=== PATIENT | female | born 1995 | race Caucasian/White ===

== ENCOUNTER 2018-12-04 20:24 | Inpatient (IN) ==
[2018-12-04 20:51] LABS: Bilirubin,Urine Negative (Negative); Blood,Urine Negative (Negative); Clarity,Urine Cloudy (Clear); Color,Urine Yellow (Yellow); Glucose,Urine (UA) Normal (Normal); Ketones,Urine Negative (Negative); Leukocyte Esterase,Urine Trace (Negative); Nitrite,Urine Negative (Negative); PH,Urine 7.5 pH Units (5.0-8.0); Protein,Urine 30 mg/dL (Neg-Trace); Specific Gravity,Urine 1.021 (1.010-1.025); Urobilinogen,Urine Normal (Normal)
[2018-12-04 20:55] LABS: Bacteria,Urine Moderate per hpf (None-Few); Hyaline Casts,Urine None Seen per lpf (None-Few); Squamous Epithelial Cell,Urine Many per lpf (None-Few)
--- NOTE | 2018-12-04 21:11 | Emergency Department Note ---
Disposition Clinical Impression: Suicidal ideation, Medical clearance for psychiatric admission Disposition: Admitted As Inpatient Condition: Undetermined Referrals: NONE,PCP [Primary Care Provider] - Forms: ED Satisfaction Letter General Adult HPI - General Chief complaint: ED Psychiatric Symptoms Stated complaint: SI Time Seen by Provider: 12/04/18 20:33 Source: patient Limitations: no limitations Nursing Notes Reviewed: Yes Vital Signs Reviewed: Yes - History of Present Illness Pain Scale: 0 - Related Data Home Medications Medication Instructions Recorded Confirmed Etonogestrel [Nexplanon] 68 mg SQ ONCE 02/23/17 02/23/17 Previous Rx's Medication Instructions Recorded Azithromycin [Azithromycin 6-Tab 250 mg PO PER PKG DI #6 tab 11/03/18 Pack] Benzonatate [Tessalon] 200 mg PO TID PRN #30 capsule 11/03/18 GuaiFENesin ER [Mucinex] 1,200 mg PO BID #20 tbbp.12hr 11/03/18 Allergies Allergy/AdvReac Type Severity Reaction Status Date / Time Amoxicillin Allergy Rash Verified 11/03/18 16:57 Past Medical History - Past Medical History Medical history: Reports: no medical history Surgical history: Reports: appendectomy Psychiatric history: Reports: anxiety, depression - Social History Smoking Status: Current some day smoker Smokeless Tobacco Status: No Alcohol use: Reports: rarely Drug use: Reports: none Physical Exam - General Limitations: no limitations General appearance: alert, in no apparent distress Course Vital Signs Temperature 98.3 F 12/04/18 20:27 Pulse Rate 92 12/04/18 20:27 Respiratory Rate 16 12/04/18 20:27 Blood Pressure 128/82 12/04/18 20:27 O2 Sat by Pulse Oximetry 99 12/04/18 20:27 Temperature 98.3 F 12/04/18 20:27 Pulse Rate 92 12/04/18 20:27 Respiratory Rate 16 12/04/18 20:27 Blood Pressure 128/82 12/04/18 20:27 O2 Sat by Pulse Oximetry 99 12/04/18 20:27 Oxygen Delivery Oxygen Delivery Room Air Medical Decision Making - [facility] Narrative Medical decision making narrative: 2240 hrs.: 1A has evaluated her and agree she to admission. She is in agreement with plan. [address] Impression suicidal ideations and depression. - Lab Data Lab Results 12/04/18 12/04/18 12/04/18 Range/Units 20:38 20:38 20:38 TSH 2.739 (0.340-5.600) mcIU/mL Urine Color Yellow (Yellow) Urine Clarity Cloudy A (Clear) Urine pH 7.5 (5.0-8.0) pH Units Ur Specific [place] 1.021 (1.010-1.025) Urine Protein 30 H (Neg-Trace) mg/dL Urine Glucose (UA) Normal (Normal) mg/dL Urine Ketones Negative (Negative) mg/dL Urine Blood Negative (Negative) Urine Nitrite Negative (Negative) Urine Bilirubin Negative (Negative) Urine Urobilinogen Normal (Normal) mg/dL Ur Leukocyte Esterase Trace H (Negative) Urine Microscopic RBC 5-15 H (0-3) per hpf Urine Microscopic WBC 5-15 H (0-3) per hpf Ur Squamous Epith Cells Many H (None-Few) per lpf Urine Bacteria Moderate H (None-Few) per hpf Hyaline Casts None Seen (None-Few) per lpf Urine Test (Negative) Salicylates < 2.5 L (15.0-30.0) mg/dL Urine Opiates Screen Negative (Gclilh=526) ng/mL Acetaminophen < 10 L (10-20) mcg/mL Ur Barbiturates Screen Negative (Dquvmx=019) ng/mL Ur Phencyclidine Scrn Negative (Cutoff=25) ng/mL Ur Amphetamines Screen Negative (Hnjxzs=0264) ng/mL U Benzodiazepines Scrn Negative (Gnjigf=894) ng/mL Urine Cocaine Screen Negative (Cutoff= 300) ng/mL U Marijuana (THC) Screen Negative (Cutoff = 50) ng/mL Ur Drug Screen Interp See Below Ethyl Alcohol < 10 (Less than 10) mg/dL 12/04/18 Range/Units 20:38 TSH (0.340-5.600) mcIU/mL Urine Color (Yellow) Urine Clarity (Clear) Urine pH (5.0-8.0) pH Units Ur Specific [place] (1.010-1.025) Urine Protein (Neg-Trace) mg/dL Urine Glucose (UA) (Normal) mg/dL Urine Ketones (Negative) mg/dL Urine Blood (Negative) Urine Nitrite (Negative) Urine Bilirubin (Negative) Urine Urobilinogen (Normal) mg/dL Ur Leukocyte Esterase (Negative) Urine Microscopic RBC (0-3) per hpf Urine Microscopic WBC (0-3) per hpf Ur Squamous Epith Cells (None-Few) per lpf Urine Bacteria (None-Few) per hpf Hyaline Casts (None-Few) per lpf Urine Test Negative (Negative) Salicylates (15.0-30.0) mg/dL Urine Opiates Screen (Ubmeth=476) ng/mL Acetaminophen (10-20) mcg/mL Ur Barbiturates Screen (Mbtbbb=990) ng/mL Ur Phencyclidine Scrn (Cutoff=25) ng/mL Ur Amphetamines Screen (Zttoob=7948) ng/mL U Benzodiazepines Scrn (Vwkvfx=039) ng/mL Urine Cocaine Screen (Cutoff= 300) ng/mL U Marijuana (THC) Screen (Cutoff = 50) ng/mL Ur Drug Screen Interp Ethyl Alcohol (Less than 10) mg/dL Attestation Statement - Attestation Attestation: I examined this patient and my medical decision-making was reviewed with the Resident Physician. I agree with the documented findings, disposition and treatment plan as described except to the extent set forth below. Patient seen and evaluated by Dr. Darnell and myself, I agree with his evaluation and managem ent plan, I supervised the care the patient's stay. Patient comes in she has been depressed for some time mom states she has had anxiety recent break up with fiance. Mom states that she is not certain why she has been so depressed over that she says she is crying multiple times is never sure what is going on. However then she tells us that she is suicidal with a possible plan of there are guns in the household also. She has not any overdose history in the past she has been on Lexapro they did increase the dose of that. She is trying to get in the counseling center but cannot get in until December. Leigh do lab work on her. A 72 hold and will be in place and then 1A evaluation.
--- NOTE | 2018-12-04 21:14 | Emergency Department Note ---
Disposition Clinical Impression: Suicidal ideation, Medical clearance for psychiatric admission Disposition: Admitted As Inpatient Condition: Undetermined Referrals: NONE,PCP [Primary Care Provider] - Forms: ED Satisfaction Letter Time of Disposition: 22:38 Psych HPI - General Chief Complaint: ED Psychiatric Symptoms Stated Complaint: SI Time Seen by Provider: 12/04/18 20:33 Source: patient Mode of arrival: ambulatory Limitations: no limitations Nursing Notes Reviewed: Yes Vital Signs Reviewed: Yes - History of Present Illness HPI Narrative: 23-year-old female with history of anxiety arrives to emergency department with suicidal ideation. The patient states that she recently had her boyfriend a couple months ago and she states that his "spiraling downhill since then. The patient states that she feels hopeless. The patient has suicidal ideations with a plan to shoot herself agrees he will park or hang herself with a rat[place]. The family does have access to firearms. The patient denies any other complaints at this time. She is very tearful examination the room. - Related Data Home Medications Medication Instructions Recorded Confirmed Etonogestrel [Nexplanon] 68 mg SQ ONCE 02/23/17 02/23/17 Previous Rx's Medication Instructions Recorded Azithromycin [Azithromycin 6-Tab 250 mg PO PER PKG DI #6 tab 11/03/18 Pack] Benzonatate [Tessalon] 200 mg PO TID PRN #30 capsule 11/03/18 GuaiFENesin ER [Mucinex] 1,200 mg PO BID #20 tbbp.12hr 11/03/18 Allergies Allergy/AdvReac Type Severity Reaction Status Date / Time Amoxicillin Allergy Rash Verified 11/03/18 16:57 All systems ED: reviewed and negative except as stated. Constitutional: Denies: fever, chills, weakness ENT ED: Denies: dysphagia Cardiovascular: Denies: chest pain Respiratory: Denies: dyspnea Gastrointestinal: Denies: abdominal pain Genitourinary: Denies: urgency, dysuria Musculoskeletal: Denies: back pain Integumentary: Denies: rash Neurological: Denies: headache Psychiatric: Reports: anxiety, depression, suicidal thoughts. Denies: homicidal thoughts, auditory hallucinations, visual hallucinations Past Medical History - Past Medical History Attestation: Yes The following information was validated with the patient. Source: patient, old records reviewed Medical history: Reports: no medical history Surgical history: Reports: appendectomy Psychiatric history: Reports: anxiety, depression - Social History Smoking Status: Current some day smoker Smokeless Tobacco Status: No Alcohol use: Reports: rarely Drug use: Reports: none Physical Exam - General Limitations: no limitations General appearance: alert, in no apparent distress, anxious - Head Head exam: atraumatic, normocephalic, normal inspection - Eye Eye exam: Present: normal appearance, PERRL, EOMI - ENT ENT exam: normal exam, normal oropharynx, mucous membranes moist - Neck Neck exam: Present: normal inspection, full ROM, trachea midline - Chest Chest inspection: Present: normal inspection, symmetric chest wall rise - Respiratory Respiratory exam: Absent: respiratory distress - Cardiovascular Cardiovascular exam: Present: regular rate - Extremities Exam Extremities exam: Present: normal inspection, full ROM. Absent: tenderness, pedal edema - Neurological Exam Neurological exam: Present: alert, oriented X3, CN II-XII intact - Psychiatric Psychiatric exam: Present: depressed, suicidal ideation. Absent: homicidal ideation - Skin Skin exam: Present: warm, dry, intact, normal color Course - Reevaluation(s) Reevaluation #1: Patient medically cleared. One a will see patient. Time: 21:32 Vital Signs Temperature 98.3 F 12/04/18 20:27 Pulse Rate 92 12/04/18 20:27 Respiratory Rate 16 12/04/18 20:27 Blood Pressure 128/82 12/04/18 20:27 O2 Sat by Pulse Oximetry 99 12/04/18 20:27 Temperature 98.3 F 12/04/18 20:27 Pulse Rate 92 12/04/18 20:27 Respiratory Rate 16 12/04/18 20:27 Blood Pressure 128/82 12/04/18 20:27 O2 Sat by Pulse Oximetry 99 12/04/18 20:27 Oxygen Delivery Oxygen Delivery Room Air Psych - MDM Narrative Medical decision making narrative: Patient was medically cleared and evaluated by one a day. At that time they feel as though the patient needs to be admitted for observation to psychiatric services. Patient admitted this time. No further recommendations noted. - Lab Data Lab Results 12/04/18 12/04/18 12/04/18 Range/Units 20:38 20:38 20:38 TSH 2.739 (0.340-5.600) mcIU/mL Urine Color Yellow (Yellow) Urine Clarity Cloudy A (Clear) Urine pH 7.5 (5.0-8.0) pH Units Ur Specific [place] 1.021 (1.010-1.025) Urine Protein 30 H (Neg-Trace) mg/dL Urine Glucose (UA) Normal (Normal) mg/dL Urine Ketones Negative (Negative) mg/dL Urine Blood Negative (Negative) Urine Nitrite Negative (Negative) Urine Bilirubin Negative (Negative) Urine Urobilinogen Normal (Normal) mg/dL Ur Leukocyte Esterase Trace H (Negative) Urine Microscopic RBC 5-15 H (0-3) per hpf Urine Microscopic WBC 5-15 H (0-3) per hpf Ur Squamous Epith Cells Many H (None-Few) per lpf Urine Bacteria Moderate H (None-Few) per hpf Hyaline Casts None Seen (None-Few) per lpf Urine Test (Negative) Salicylates < 2.5 L (15.0-30.0) mg/dL Urine Opiates Screen Negative (Gysntk=727) ng/mL Acetaminophen < 10 L (10-20) mcg/mL Ur Barbiturates Screen Negative (Pfawhn=820) ng/mL Ur Phencyclidine Scrn Negative (Cutoff=25) ng/mL Ur Amphetamines Screen Negative (Qojwlr=7113) ng/mL U Benzodiazepines Scrn Negative (Agcebb=109) ng/mL Urine Cocaine Screen Negative (Cutoff= 300) ng/mL U Marijuana (THC) Screen Negative (Cutoff = 50) ng/mL Ur Drug Screen Interp See Below Ethyl Alcohol < 10 (Less than 10) mg/dL 12/04/18 Range/Units 20:38 TSH (0.340-5.600) mcIU/mL Urine Color (Yellow) Urine Clarity (Clear) Urine pH (5.0-8.0) pH Units Ur Specific [place] (1.010-1.025) Urine Protein (Neg-Trace) mg/dL Urine Glucose (UA) (Normal) mg/dL Urine Ketones (Negative) mg/dL Urine Blood (Negative) Urine Nitrite (Negative) Urine Bilirubin (Negative) Urine Urobilinogen (Normal) mg/dL Ur Leukocyte Esterase (Negative) Urine Microscopic RBC (0-3) per hpf Urine Microscopic WBC (0-3) per hpf Ur Squamous Epith Cells (None-Few) per lpf Urine Bacteria (None-Few) per hpf Hyaline Casts (None-Few) per lpf Urine Test Negative (Negative) Salicylates (15.0-30.0) mg/dL Urine Opiates Screen (Bryxtw=027) ng/mL Acetaminophen (10-20) mcg/mL Ur Barbiturates Screen (Erscwy=691) ng/mL Ur Phencyclidine Scrn (Cutoff=25) ng/mL Ur Amphetamines Screen (Zzqiha=3722) ng/mL U Benzodiazepines Scrn (Kihybb=592) ng/mL Urine Cocaine Screen (Cutoff= 300) ng/mL U Marijuana (THC) Screen (Cutoff = 50) ng/mL Ur Drug Screen Interp Ethyl Alcohol (Less than 10) mg/dL Psychiatric Medical Clearance - Medical Clearance Checklist Medical History: No Social History Section defined Current Vitals: Last Vital Signs Temp 98.3 F 12/04/18 20:27 Pulse 92 12/04/18 20:27 Resp 16 12/04/18 20:27 BP 128/82 12/04/18 20:27 Pulse Ox 99 12/04/18 20:27 Psychiatric Lab Panel: Drug Levels and Toxicity 12/04/18 12/04/18 20:38 20:38 Urine Opiates Screen Negative Acetaminophen < 10 L Ur Barbiturates Screen Negative Ur Phencyclidine Scrn Negative Ur Amphetamines Screen Negative U Benzodiazepines Scrn Negative Urine Cocaine Screen Negative U Marijuana (THC) Screen Negative Ethyl Alcohol < 10 Abnormal Labs: Abnormal lab results Urine Clarity Cloudy (Clear) A 12/04/18 20:38 Urine Protein 30 mg/dL (Neg-Trace) H 12/04/18 20:38 Ur Leukocyte Esterase Trace (Negative) H 12/04/18 20:38 Urine Microscopic RBC 5-15 per hpf (0-3) H 12/04/18 20:38 Urine Microscopic WBC 5-15 per hpf (0-3) H 12/04/18 20:38 Ur Squamous Epith Cells Many per lpf (None-Few) H 12/04/18 20:38 Urine Bacteria Moderate per hpf (None-Few) H 12/04/18 20:38 Salicylates < 2.5 mg/dL (15.0-30.0) L 12/04/18 20:38 Acetaminophen < 10 mcg/mL (10-20) L 12/04/18 20:38 Statement of Medical Clearance: I have evaluated the patient, reviewed diagnostic information, and certify that the patient's medical condition is sufficiently stable that transfer to the psychiatric unit does not pose a significant risk of deterioration.
[2018-12-04 21:19] LABS: Acetaminophen < 10 mcg/mL (10-20); Amphetamine Screen,Urine Negative ng/mL (Cutoff=1000); Barbiturate Screen,Urine Negative ng/mL (Cutoff=200); Benzodiazepines Screen,Urine Negative ng/mL (Cutoff=200); Cannabinoid Screen,Urine Negative ng/mL (Cutoff = 50); Cocaine Screen,Urine Negative ng/mL (Cutoff= 300); Ethanol < 10 mg/dL (Less than 10); Opiate Screen,Urine Negative ng/mL (Cutoff=300); Phencyclidine Screen,Urine Negative ng/mL (Cutoff=25); Salicylate < 2.5 mg/dL (15.0-30.0)
[2018-12-04 21:26] LABS: Thyroid Stimulating Hormone 2.739 mcIU/mL (0.340-5.600)
[2018-12-05] MEDS ORDERED: Haloperidol Lactate 5 MG/ML VIAL IM PRN (00:29)
[2018-12-05] MEDS ORDERED: Mag Hydrox/Al Hydrox/Simeth 30 ML UDC PO PRN (00:29)
[2018-12-05] MEDS ORDERED: MOM Conc 10 ML UD.LIQ PO PRN (00:29)
[2018-12-05] MEDS ORDERED: hydrOXYzine pamoate 25 MG CAPSULE PO PRN (00:29)
[2018-12-05] MEDS ORDERED: *HR* LORazepam 1 MG TABLET PO PRN (00:29)
[2018-12-05] MEDS ORDERED: *HR* LORazepam 2 MG/ML VIAL IM PRN (00:29)
[2018-12-05] MEDS: traZODone 50 MG TABLET PO PRN ×2 (01:03→22:15)
[2018-12-05] MEDS: Ibuprofen 400 MG TABLET PO PRN (01:04)
[2018-12-05] MEDS ORDERED: BuPROPion XL (24 HR) 150 MG TABLET PO ONE (10:30)
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
[2018-12-06] MEDS: BuPROPion XL (24 HR) 150 MG TABLET PO SCH (08:26)
--- NOTE | 2018-12-06 09:35 | Psychiatry Progress Note ---
Date of Encounter: 12/06/18 Time of Encounter: 09:31 Subjective Interval history: Client reports tolerating the Wellbutrin. Thinks it might be helping. Reports her mood is "neutral" as opposed to sad. Does not feel happy but notices she does not necessarily feel bad either. SI still present off and on. Attended some groups yesterday. Stressed importance of attending groups again today to learn new coping skills. Client unable to express any coping skills on her own. Does not yet have a plan for what she will do when/if suicidal thoughts return after discharge. Not yet linked with services but getting set up with an outpatient psychiatrist and counselor will help. Wanting to go home which is a positive. Likely discharge tomorrow if things continue to improve. Review of Systems Constitutional: Denies: fever, chills, weakness, weight change Eyes: Denies: eye pain, vision change Ears, Nose, Throat: Denies: ear pain, throat pain, dental pain, hearing loss, congestion Cardiovascular: Denies: chest pain, palpitations, dyspnea on exertion Respiratory: Denies: cough, dyspnea, wheezes Gastrointestinal: Denies: abdominal pain, nausea, vomiting, diarrhea, constipation Musculoskeletal: Denies: joint swelling, joint pain Neurological: Denies: headache, weakness, numbness, memory loss Psychiatric: Reports: depression, anxiety, anhedonia. Denies: suicidal ideation, homicidal ideation, auditory hallucinations, visual hallucinations Results - Vital Signs Vital Signs: Temp Pulse Resp BP Pulse Ox 97.2 F L 70 18 109/76 97 12/06/18 09:00 12/06/18 09:00 12/06/18 09:00 12/06/18 09:00 12/06/18 09:00 Assessment and Plan (1) Major depress dis, severe Current visit: Yes Status: Acute Plan: Continue hospitalization, Close observation, Suicide Precautions per unit protocol, Encourage participation in unit milieu, Group Therapy, Monitor sleep, Monitor appetite Risks, benefits, side effects, alternatives discussed w/pt: Yes Patient agreeable to treatment: Yes (2) Suicidal ideation Current visit: Yes Status: Acute Plan: Continue hospitalization, Close observation, Suicide Precautions per unit protocol, Encourage participation in unit milieu, Group Therapy, Monitor sleep, Monitor appetite Risks, benefits, side effects, alternatives discussed w/pt: Yes Patient agreeable to treatment: Yes Consult Discharge Plan - Plan Referrals: NONE,PCP [Primary Care Provider] - Psychiatry Exam - Constitutional Vitals: Temp Pulse Resp BP Pulse Ox 97.2 F L 70 18 109/76 97 12/06/18 09:00 12/06/18 09:00 12/06/18 09:00 12/06/18 09:00 12/06/18 09:00 General appearance: age & developmentally appropriate, well-groomed, well- nourished - Musculoskeletal Gait: normal Station: relaxed Strength & Tone: normal for patient - Psychiatric Patient Orientation: Yes Person, Yes Time, Yes Place Level of alertness: Alert Behavior: calm, cooperative Psychomotor activity: Normal Eye Contact: Maintains Eye Contact Mood Description: Depressed Affect description: congruent with mood Speech Volume: Normal Speech pattern: normal rate, normal rhythm, normal tone, fluent, spontaneous Language & Vocabulary: consistent with education Thought Process: Linear Thought Content: Yes Suicidal ideation, No Homicidal ideation, No Overt delusions Perceptual Disturbances: No Auditory hallucinations, No Visual hallucinations Attention Span Ability: Capable of Focused Attention Memory Description: Grossly Intact Patient Reliability: Reliable Historian Fund of knowledge: Yes abstraction ability, Yes aware of current events Intelligence Estimate: Average Judgment: Fair Insight: Partial
[2018-12-06] MEDS: Ibuprofen 400 MG TABLET PO PRN ×2 (11:14→20:57)
[2018-12-06] MEDS: traZODone 50 MG TABLET PO PRN (20:57)
[2018-12-07] MEDS: BuPROPion XL (24 HR) 150 MG TABLET PO SCH (08:10)
[2018-12-07 10:01] VITALS: BP 105/64
--- NOTE | 2018-12-07 11:50 | Discharge Summary ---
Date of Encounter: 12/07/18 Time of Encounter: 10:50 Diagnosis - Discharge Diagnosis (1) Major depress dis, severe Priority: Primary Status: Acute (2) Suicidal ideation Status: Resolved Medications - Discharge Medications Prescriptions: BuPROPion XL (24 HR) [Wellbutrin Xl] 150 mg PO DAILY 14 Days #14 tab.er.24h Escitalopram [Lexapro] 10 mg PO DAILY 14 Days #14 tablet Biotin 1 mg PO DAILY 12/05/18 [History] Levonorgestrel [Kyleena] 1 each IY AD 12/05/18 [History] BuPROPion XL (24 HR) [Wellbutrin Xl] 150 mg PO DAILY 14 Days #14 tab.er.24h 12/07/18 [Rx] Escitalopram [Lexapro] 10 mg PO DAILY 14 Days #14 tablet 12/07/18 [Rx] Allergy/AdvReac Type Severity Reaction Status Date / Time Amoxicillin Allergy Rash Verified 12/05/18 21:27 Results Procedures and tests throughout hospitalization: Completed Lab Orders Category Date Time Status Acetaminophen Stat Lab 12/04/18 20:38 Completed Drug Screen, Urine [UCHEM] Stat Lab 12/04/18 20:38 Completed Ethanol Stat Lab 12/04/18 20:38 Completed Test Result, Urine [URIN] Stat Lab 12/04/18 20:38 Completed Salicylate Stat Lab 12/04/18 20:38 Completed Thyroid Stimulating Hormone Stat Lab 12/04/18 20:38 Completed Urinalysis reflex Microscopic [URIN] Stat Lab 12/04/18 20:38 Completed Provider Date of admission: 12/04/18 22:44 Primary care physician: PCP NONE Discharging clinician: Lindsey Arroyo Psychiatry Exam - Constitutional Vitals: Temp Pulse Resp BP Pulse Ox 97.7 F 100 18 105/64 95 12/07/18 09:00 12/07/18 09:00 12/07/18 09:00 12/07/18 09:00 12/07/18 09:00 General appearance: age & developmentally appropriate, well-nourished Additional observations: Patient appears much better today and this provider's previous interactions with the patient. She is smiling more often and is focused on maintaining her mental health. - Musculoskeletal Gait: normal Station: relaxed Strength & Tone: normal for patient - Psychiatric Patient Orientation: Yes Person, Yes Time, Yes Place, Yes Circumstance Level of alertness: Alert Behavior: calm, cooperative, other (Pleasant) Psychomotor activity: Normal Eye Contact: Maintains Eye Contact Mood Description: Euthymic/stable Patient description of mood: "Pretty good" Affect description: congruent with mood, euthymic Speech Volume: Normal Speech pattern: normal rate, normal rhythm, normal tone, appropriate, clear, coherent Language & Vocabulary: consistent with education Thought Process: Intact, Logical, Linear, Goal Oriented Thought Content: Yes Intact, No Suicidal ideation, No Homicidal ideation Perceptual Disturbances: No Reacting to internal stimuli, No Auditory hallucinations, No Visual hallucinations Attention Span Ability: Capable of Focused Attention Memory Description: Grossly Intact Patient Reliability: Reliable Historian Fund of knowledge: Yes average Intelligence Estimate: Average Judgment: Good Insight: Full Hospital Course Hospital course: Ms. Plascencia is a 23 year old female who was admitted with suicidal ideation. Patient has been denying suicidal ideation since her arrival on the unit. She has been attending all groups. She states that she has learned coping skills while being here. She is completed for puzzles since her admission and states that now she realizes that she needs to do things like that to take care of herself. Patient states that if she is to experience a suicidal thought while at home, she will call her best friend and she will do her best to avoid being alone. She states is staying preoccupied has helped her thoughts subsided. She states that her reasons for living are her want to travel and her little sisters. She states that her 8-year-old sister is "my world." Patient is currently denying any suicidal or homicidal thoughts. She denies auditory and visual hallucinations. She states that her mood is "pretty good," as is her sleep and appetite. Patient states that her mom visited yesterday and she is eager to go home. She is also hoping to follow up with a counselor, and she was informed that this will be set up for her. Patient was educated of her diagnosis and the risks, benefits, and side effects of this treatment and alternative treatment options and was monitored for responsiveness and side effects. Mood, anxiety, sleep, appetite, and interest improved, as did future orientation. Self-harm thoughts subsided, thinking cleared, and mood stabilized. Patient was able to attend both individual and group therapy sessions, as well as meeting with the psychiatrist daily and urged to discuss any medication or treatment issues or other concerns. The patient was educated primarily by verbal means about their diagnosis and manifestations in their life. The option for treatment including group and individual therapy programming was offered to the patient in the use of medications with all their potential risks, benefits, and side effects were discussed with the patient at length. The patient was given the opportunity to ask questions and was noted to participate in the treatment in the planning process. The patient felt ready and eager to be discharged from the inpatient psychiatric unit to continue on with treatment as an outpatient. The patient agreed that is they were safe for this disposition. The patient was considered to be able to participate in informed consent and decision making with respect to medical, legal, and financial issues of the time of discharge. At the time of discharge the patient adamantly denied any concerns for lethality including suicidal or homicidal thoughts ideations or plans and was future oriented toward ongoing mental health care and medical follow-up. Time spent discussing smoking cessation with patient: 3 to 10 minutes Does patient wish to continue nicotine replacement upon disc: No (Patient is a nonsmoker.) - Time Spent with Patient Total time spent providing and/or coordinating discharge services: Greater than 30 minutes Specific discharge activities: Interval history reviewed. Available labs reviewed. Psychotherapy provided. Patient had an opportunity to ask questions and address concerns. Patient was in agreement with the treatment plan. The risks benefits and side effects of medications were discussed with the patient, including alternatives and treatment. The patient was educated on the abstaining from any alcohol or illicit substances, following up with all scheduled appointments, and taking all medications as prescribed. Assessment and Plan - Patient/Caregiver Discharge Instructions Activity: resume usual activities as tolerated, return to work Diet: regular diet Additional Instructions: Continue current medications. Follow up with outpatient mental health. Fer quintero continued therapy in a group or individual setting. The patient was discharged to home, where she lives with her mom, her stepdad, and her 3 younger sisters - Follow up Plan Follow up with: [facility] [Outside] - 12/11/18 2:00 pm (You have an appointment scheduled with DI Barrera on Tuesday, December 11, 2018 at 2:00 PM for Counseling. Please contact [facility] at the number above if you need to reschedule this appointment. ) Shae Orlando, COMMUNITY SERVICE ORGANIZATION DIRECTOR [Partnered Physician] - (Please contact the office at the number above and follow up with your primary care provider as needed. Please keep your primary care provider informed of any changes in your medications or medical conditions. ) Functional capacity at discharge: independent ambulation Overall status at discharge: Stable Disposition: Home, Self-Care Quality - Multiple Antipsychotics Patient discharged on 2 or more antipsychotic medications: No - Attending Attestation I examined this patient and my medical decision-making was reviewed with the Resident Physician. I agree with the documented findings, disposition and treatment plan as described except to the extent set forth below. Doing well today. Affect much brighter. Denying SI, intent, or plan. Thought about what we discussed yesterday and has a plan for what she will do if suicidal thoughts return......has a list of people she can call. If home alone she intends to drive her car to the store for window shopping. Also likes music and talks about one day being a music therapist. Talked at length today about classical music and how this genre of music helps keep her mind distracted from negative thinking. Looking forward to trying counseling. Future oriented. No negative behaviors on the unit. Total time spent with client greater than 30 minutes. Procedures - Procedures Procedures: Medication Management, Crisis Stabilization, Supportive Therapy, Group Therapy, Psychoeducational Therapy
== END 2018-12-07 15:00 | disposition home or self-care (01) | DRG 885 ==
LOC: EMEROOARM 20:24 → 1ANU 22:44
PROVIDERS: ADMIT Psychiatry & Neurology Psychiatry; ATTEND Psychiatry & Neurology Psychiatry